=== PATIENT | male | born 1980 | race Caucasian/White ===

== ENCOUNTER 2021-03-29 16:03 | Observation (INO) | payer SELFPAY ==
[2021-03-29] MEDS ORDERED: WATER IV SCH ×2 (17:00→21:15)
[2021-03-29] MEDS ORDERED: DEXTROSE 5% IV SCH ×2 (17:00→21:15)
[2021-03-29] MEDS ORDERED: ACETYLCYSTEINE IV SCH ×2 (17:00→21:15)
[2021-03-29 17:22] LABS: INR-International Normal Ratio 1.1; PTT 33.9 sec (22.9-36.1); Prothrombin Time 14.2 sec (12.0-14.7)
[2021-03-29 17:30] LABS: ALT (SGPT) 99 U/L (8-55); AST (SGOT) 50 U/L (5-34); Albumin 3.5 g/dL (3.5-5.0); Alkaline Phosphatase 69 U/L (40-110); Bilirubin, Direct 0.2 mg/dL (0.1-0.3); Bilirubin, Total 0.3 mg/dL (0.2-1.2); Protein, Total 6.8 g/dL (6.0-8.3)
[2021-03-29] MEDS ORDERED: Potassium Chloride 20 MEQ TAB PO SCH (20:30)
[2021-03-29] MEDS ORDERED: WATER IVPB SCH (20:30)
[2021-03-29] MEDS ORDERED: ACETYLCYSTEINE IVPB SCH (20:30)
[2021-03-29] MEDS ORDERED: DEXTROSE 5% IVPB SCH (20:30)
[2021-03-29] MEDS ORDERED: Nicotine 14 MG PATCH TD SCH (21:00)
[2021-03-29 22:11] VITALS: BMI 23.6
[2021-03-30] MEDS: hydrALAZINE 20 MG/ML VIAL SLOW IVP PRN ×2 (00:35→04:21)
[2021-03-30] MEDS ORDERED: ACETYLCYSTEINE IV SCH (01:00)
[2021-03-30] MEDS ORDERED: WATER IV SCH (01:00)
[2021-03-30] MEDS ORDERED: DEXTROSE 5% IV SCH (01:00)
[2021-03-30 03:26] LABS: SARS-CoV-2 NAA Rapid Test Not Detected (NotDetected)
[2021-03-30 07:35] LABS: Prothrombin Time 13.8 sec (12.0-14.7)
[2021-03-30 07:36] LABS: PTT 35.1 sec (22.9-36.1)
[2021-03-30 07:43] LABS: Anion Gap 10 mmol/L (10-20); BUN (Urea Nitrogen) 11 mg/dL (8.9-20.6); Calc. Creatinine Clearance 116 mL/min (70-130); Calcium 8.7 mg/dL (7.8-10.44); Carbon Dioxide 25 mmol/L (22-29); Chloride 107 mmol/L (98-107); Glucose 90 mg/dL (70-105); Potassium 4.1 mmol/L (3.5-5.1); Sodium 138 mmol/L (136-145)
[2021-03-30 07:51] LABS: ALT (SGPT) 83 U/L (8-55); AST (SGOT) 43 U/L (5-34); Acetaminophen Less than 6.0 mcg/mL (10.0-30.0); Albumin 3.5 g/dL (3.5-5.0); Alkaline Phosphatase 74 U/L (40-110); Bilirubin, Direct 0.3 mg/dL (0.1-0.3); Bilirubin, Total 0.6 mg/dL (0.2-1.2); Protein, Total 6.6 g/dL (6.0-8.3)
[2021-03-30 07:58] LABS: Syphilis Antibody Nonreactive (Nonreactive); Syphilis Antibody Index 0.05 S/CO (<1.00 Non-Reactive)
[2021-03-30 07:59] LABS: HBSAB Concentration Less than 8.00 mIU/mL; HIV (1/2) Antibody/Antigen Non-Reactive (NonReactive); HIV 1/2 INDEX 0.12 S/CO (<1.00); Hep B Surf AB Non-Reactive (NonReactive)
[2021-03-30 11:41] VITALS: BP 147/98; TEMP 98.1
== END 2021-03-30 15:47 | disposition home or self-care (01) ==
LOC: ERS 16:03 → T4-B 18:21
PROVIDERS: ADMIT Family Medicine; ATTEND Family Medicine
DX: T39.1X2A Poisoning by 4-Aminophenol derivatives, intentional self-harm, initial encounter (principal); I16.0 Hypertensive urgency; I10 Essential (primary) hypertension; E87.6 Hypokalemia; B19.20 Unspecified viral hepatitis C without hepatic coma; F17.210 Nicotine dependence, cigarettes, uncomplicated; F15.10 Other stimulant abuse, uncomplicated; Z51.5 Encounter for palliative care; Z66 Do not resuscitate; Z91.5 Personal history of self-harm; Z20.822 Contact with and (suspected) exposure to COVID-19
CPT/HCPCS: 36415; 80048; 80076; 80143; 85610; 85730; 86706; 86780; 87389; 96365; 96366; 96375; 96376; 80307; G0378; J0132; J0360; J7070; U0002; U0005